=== PATIENT | male | born 1990 | race African-American/Black ===

== ENCOUNTER 2016-12-26 00:20 | Emergency (ER) | payer MEDICAID ==
[~2016-12-26] VITALS: Ht 182.9 cm; Wt 106.6 kg
[2016-12-26] MEDS ORDERED: ALBUTEROL SULF8.5 GM INH (00:31)
[2016-12-26 00:35] VITALS: BP 118/77
[2016-12-26] MEDS ORDERED: FLONASE SENSIM9.9 ML NS (00:39)
[2016-12-26] MEDS ORDERED: NEXAFED30 MG ORAL (00:39)
--- NOTE | 2016-12-26 00:40 | Emergency Room Report ---
History of Present Illness General Chief Complaint: Upper Respiratory Illness Source: Patient Present Illness HPI Is a 26-year-old male with no past medical history. He presents with chief complaint of nasal congestion and slight cough. Onset for last 5-6 days. Over- the-counter medicine not helping. Denies any fever chills denies any nausea vomiting. No chest pain. Allergies: Coded Allergies: No Known Allergies (Unverified , 12/26/16) Patient History Past Medical History: see triage record, old chart reviewed Past Surgical History: none Pertinent Family History: none Social History: Denies: smoking Immunizations: other Reviewed Nursing Documentation: PMH: Agreed, PSxH: Agreed Nursing Documentation-PMH Past Medical History: No History, Except For Hx Asthma: Yes Review of Systems Eye: Denies: eye pain, blurred vision ENT: Reports: nose congestion, Denies: ear pain, throat swelling Respiratory: Reports: cough, Denies: shortness of breath Cardiovascular: Denies: chest pain, palpitations Gastrointestinal: Denies: abdominal pain, diarrhea, nausea, vomiting Musculoskeletal: Denies: back pain, joint pain Skin: Denies: rash Neurological: Denies: headache, numbness Endocrine: Denies: increased thirst, increased urine Hematologic/Lymphatic: Denies: easy bruising All Other Systems: negative except mentioned in HPI Physical Exam Vital Signs Date Time Temp Pulse Resp B/P (MAP) Pulse Ox O2 Delivery O2 Flow Rate FiO2 12/26/16 00:28 97.7 94 17 111/71 97 Room Air vitals normal Sp02 EP Interpretation: reviewed, normal General Appearance: well appearing, no apparent distress, alert Head: normocephalic, atraumatic Eyes: bilateral eye PERRL, bilateral eye EOMI ENT: hearing grossly normal, normal pharynx, uvula midline - Enlarged, other - nasal turbinates engorged. Neck: full range of motion, supple, no meningismus Respiratory: chest non-tender, lungs clear, normal breath sounds Cardiovascular #1: regular rate, rhythm, no murmur Gastrointestinal: normal bowel sounds, non tender, no mass, no organomegaly, no bruit, non-distended Musculoskeletal: back normal, gait/station normal, normal range of motion Psychiatric: mood/affect normal Skin: warm/dry Medical Decision Making Diagnostic Impression: Primary Impression: Upper respiratory infection Qualified Codes: J06.9 - Acute upper respiratory infection, unspecified; B97.89 - Other viral agents as the cause of diseases classified elsewhere ER Course Patient presents with a viral upper respiratory infection. No evidence of infection. No evidence of meningitis. We'll discharge him. No need for antibiotics. Last Vital Signs Date Time Temp Pulse Resp B/P (MAP) Pulse Ox O2 Delivery O2 Flow Rate FiO2 12/26/16 00:28 97.7 94 17 111/71 97 Room Air Status: improved Disposition: HOME, SELF-CARE Condition: Stable Scripts Fluticasone Furoate (FLONASE SENSIMIST) 9.9 Ml [place].susp 9.9 ML NS BID, #1 UNIT Prov: CHARLY CUEVAS M.D. 12/26/16 Pseudoephedrine Hcl* (NEXAFED*) 30 Mg Tablet 60 MG ORAL Q6H Y for congestion, #30 TAB Prov: CHARLY CUEVAS M.D. 12/26/16 Additional Instructions: Followup with your Dr. in 7 days. Return if symptom worsen. Stop Afrin. CHARLY CUEVAS M.D. Dec 26, 2016 00:40
== END 2016-12-26 00:44 | disposition home or self-care (01) ==
LOC: EMR 00:40
DX: J06.9 Acute upper respiratory infection, unspecified (principal); J45.909 Unspecified asthma, uncomplicated
CPT/HCPCS: 99284

== ENCOUNTER 2017-05-06 08:29 | Emergency (ER) | payer MEDICAID ==
[~2017-05-06] VITALS: Ht 180.3 cm; Wt 111.1 kg
[~2017-05-06 08:29] MED LIST: ALBUTEROL SULF8.5 GM INH; FLONASE SENSIM9.9 ML NS; NEXAFED30 MG ORAL
[2017-05-06] MEDS ORDERED: Albuterol ud Inhalation HHN ONE (08:45)
[2017-05-06] MEDS ORDERED: PREDNISONE20 MG ORAL (08:46)
[2017-05-06] MEDS ORDERED: VENTOLIN HFA18 GM INH (08:46)
[2017-05-06 08:47] VITALS: BP 130/79
--- NOTE | 2017-05-06 09:19 | Emergency Room Report ---
History of Present Illness General Chief Complaint: Asthma Source: Patient Present Illness HPI 26-year-old male with one week of upper respiratory infection symptoms Using home albuterol without improvement to cough and chest tightness Denies fever, chills, shortness of breath, myalgias Uses only albuterol as needed for asking med, not in any other long-acting asthma medications Allergies: Coded Allergies: No Known Allergies (Unverified , 12/26/16) Patient History Past Medical History: asthma Past Surgical History: none Pertinent Family History: none Social History: Denies: smoking, alcohol use, drug use Immunizations: UTD Reviewed Nursing Documentation: PMH: Agreed, PSxH: Agreed Nursing Documentation-PMH Past Medical History: No History, Except For Hx Asthma: Yes Review of Systems All Other Systems: negative except mentioned in HPI Physical Exam Vital Signs Date Time Temp Pulse Resp B/P (MAP) Pulse Ox O2 Delivery O2 Flow Rate FiO2 05/06/17 08:37 98.6 85 16 130/79 96 Room Air Sp02 EP Interpretation: reviewed, normal General Appearance: normal inspection, well appearing, no apparent distress, alert, GCS 15, non-toxic Head: normocephalic, atraumatic Eyes: bilateral eye PERRL, bilateral eye EOMI ENT: normal ENT inspection, hearing grossly normal, normal pharynx, no angioedema, normal voice, TMs + canals normal, uvula midline, moist mucus membranes Neck: normal inspection, full range of motion, supple, thyroid normal, no meningismus, no bony tend Respiratory: normal inspection, lungs clear, normal breath sounds, no rhonchi, no respiratory distress, no retraction, no accessory muscle use, speaking full sentences, wheezing - mild end exp wheeze Cardiovascular #1: regular rate, rhythm, no edema, no JVD, normal capillary refill Gastrointestinal: normal inspection, normal bowel sounds, non tender, soft, no mass, no peritonitis, non-distended, no guarding, no hernia, no pulsatile mass Genitourinary: no CVA tenderness Musculoskeletal: normal inspection, back normal, normal range of motion, no calf tenderness, pelvis stable, Debora's Sign negative Neurologic: normal inspection, alert, oriented x3, responsive, physical biochemist III-XII nml as tested, motor strength/tone normal, cerebellar normal, normal gait, speech normal Psychiatric: normal inspection, judgement/insight normal, mood/affect normal, no suicidal/homicidal ideation, no delusions Skin: normal inspection, normal color, no rash Lymphatic: normal inspection, no adenopathy Medical Decision Making Diagnostic Impression: Primary Impression: Asthma Qualified Codes: J45.21 - Mild intermittent asthma with (acute) exacerbation ER Course 26YOmale with mild asthma exacerbation Vital signs stable, afebrile No hypoxia or tachypnea imProved with one nebulizer overall, prednisone ER course: Patient has remained stable during ED stay. Disposition: Patient is to be discharged to home. Prescriptions given are ventolin, prednisone Patient is instructed to follow up with their primary care doctor within 5 days. Strict return precautions discussed with patient such as fever, chills, worsening/severe pain, nausea, vomiting, which may indicate severe illness. Patient verbalizes understanding and agrees with plan. Please note that this Emergency Department Report was dictated using [employer] technology software, occasionally this can lead to erroneous entry secondary to interpretation by the dictation equipment Last Vital Signs Date Time Temp Pulse Resp B/P (MAP) Pulse Ox O2 Delivery O2 Flow Rate FiO2 05/06/17 08:47 98.6 16 130/79 96 Room Air 05/06/17 08:47 85 Status: improved Disposition: HOME, SELF-CARE Condition: Improved Scripts Albuterol Sulfate (VENTOLIN HFA) 18 Gm Hfa.aer.ad 1 PUFF INH EVERY 6 HOURS, #18 GM 0 Refills Prov: OPAL GIBBS M.D. 05/06/17 Prednisone* (PREDNISONE*) 20 Mg Tablet 40 MG ORAL DAILY for 3 Days, #6 TAB Prov: OPAL GIBBS M.D. 05/06/17 Patient Instructions: Asthma, Adult OPAL GIBBS M.D. May 06, 2017 09:19
[2017-05-06 09:25] VITALS: BP 130/79
== END 2017-05-06 09:25 | disposition home or self-care (01) ==
LOC: EMR 08:53
DX: J45.901 Unspecified asthma with (acute) exacerbation (principal)
CPT/HCPCS: 94640; 94664; 99283; J7512